=== PATIENT | male | born 1945 | race Caucasian/White ===

== ENCOUNTER → 2017-05-20 | Day surgery (SDC) | payer MEDICARE ==
[~2017-05-20] MED LIST: FLUT1SPR5 EACH NARE; KEPP10002 PO; LACTATED RINGER'S 1000 ML INJ 1,000 ML ONE; OXYC-396 PO; PERC10TA27 PO; PERC5TAB12 PO; XARE20TA PO; ceFAZolin INJ 1,000 MG VIAL ONE
== END | disposition home or self-care (01) ==
LOC: ESDC 12:53
PROVIDERS: ATTEND Urology
DX: N43.3 Hydrocele, unspecified (principal)
CPT/HCPCS: J0690; J7120

== ENCOUNTER 2017-06-28 08:56 | Emergency (ER) | payer MEDICARE ==
[~2017-06-28] VITALS: Ht 172.7 cm; Wt 80.0 kg
[~2017-06-28 08:56] MED LIST changes: -LACTATED RINGER'S 1000 ML INJ 1,000 ML ONE; -PERC10TA27 PO; -PERC5TAB12 PO; -ceFAZolin INJ 1,000 MG VIAL ONE
[2017-06-28 08:59] VITALS: BP 130/80; PULSE 80; RESP 15; TEMP 97.9; O2SAT 96
--- NOTE | 2017-06-28 09:37 | PD ---
HPI Chief Complaint: Complaint Time Seen by Provider: 09:22 Travel History International Travel<30 days: No Contact w/Intl Traveler<30days: No Traveled to known affect area: No History of Present Illness HPI This is a very pleasant 72-year-old male with a history of right lower extremity DVT, seizure disorder, right sided hydrocele, who presents today with pain with his hydrocele and difficulty urinating. Patient states that he was initially scheduled on 912 to have surgery to repair his hydrocele however it was canceled. He states he's now been referred to Dr. Dickens he'll be seen. He reports pain in his right testicle. He also reports difficulty urinating secondary to the discomfort. He denies any new pain. He reports this is a progressive pain that is getting worse. There is no reported fevers, chills. He is on Xarelto and his helmet for the last 5 days. PFSH Past Medical History Hx Anticoagulant Therapy: Yes Diminished Hearing: No Genitourinary: Yes (HYDROCELE ) Immunizations Current: No Seizures: Yes (RELATED TO VALIUM ) Tetanus Vaccination: Unknown Influenza Vaccination: No Past Surgical History Genitourinary Surgery: Yes (MEATUS SURGERY ) Tonsillectomy: Yes Social History Alcohol Use: No Tobacco Use: No Substance Use: No Allergies-Medications (Allergen,Severity, Reaction): Coded Allergies: erythromycin base (Unverified Allergy, Severe, Gi upset, 04/30/17) tamsulosin (Unverified Allergy, Severe, heart palpitations, 04/30/17) baclofen (Unverified Allergy, Intermediate, nausea, 04/30/17) carvedilol (Unverified Allergy, Intermediate, nausea/ hyptension, 04/30/17) hydrochlorothiazide (Unverified Allergy, Intermediate, dizziness/ loss balance, 04/30/17) fluticasone (Verified Allergy, Unknown, RASHES, 06/28/17) Reported Meds & Prescriptions Reported Meds & Active Scripts Active Percocet (Oxycodone-Acetaminophen) 10-325 mg Tab 1 Tab PO Q6H PRN 5 Days Reported Oxycodone (Oxycodone HCl) 20 Mg Tab 20 Mg PO DAILY PRN Keppra (Levetiracetam) 1,000 Mg Tab 1,000 Mg PO BID Xarelto (Rivaroxaban) 20 Mg Tab 20 Mg PO DAILY Review of Systems Except as stated in HPI: all other systems reviewed are Neg General / Constitutional: No: Fever, Chills HENT: No: Headaches, Lightheadedness Cardiovascular: No: Chest Pain or Discomfort, Palpitations, Diaphoresis Respiratory: No: Cough, Shortness of Breath Genitourinary: Positive: Decreased Urinary Output (secondary to discomfort in his testicles.), Other (testicular/hydrocele pain.), No: Urgency, Frequency Musculoskeletal: No: Weakness, Pain Neurologic: No: Weakness, Headache Physical Exam Narrative GENERAL: Well-nourished, well-developed patient in no acute respiratory distress. SKIN: Focused skin assessment warm/dry. HEAD: Normocephalic/atraumatic. EYES: No scleral icterus. No injection or drainage. NECK: Supple, trachea midline. No JVD or lymphadenopathy. CARDIOVASCULAR: Regular rate and rhythm without murmurs, gallops, or rubs. RESPIRATORY: Breath sounds equal bilaterally. No accessory muscle use. GASTROINTESTINAL: Abdomen soft, non-tender, nondistended. GENITOURINARY: Circumcised. Testes descended bilaterally without evidence of rotation. There is swelling and mass like structure in his right testicle consistent with his hydrocele. No lesions or erythema. No urethral discharge. MUSCULOSKELETAL: No cyanosis, or edema. NEUROLOGICAL: Awake and alert. Cranial nerves II through XII intact. Motor grossly within normal limits. Five out of 5 muscle strength in all muscle groups. Normal speech. Data Data Last Documented VS Vital Signs Date Time Temp Pulse Resp B/P (MAP) Pulse Ox O2 Delivery O2 Flow Rate FiO2 06/28/17 10:26 59 16 143/82 (102) 97 Room Air 06/28/17 08:59 97.9 Orders Orders Urinalysis - C+S If Indicated (06/28/17 09:22) Iv Access Insert/Monitor (06/28/17 09:22) Oximetry (06/28/17 09:22) Support, Scrotal Med Ea (06/28/17 10:41) Oxycodone-Acetamin 5-325 Mg (Percocet (06/28/17 10:45) Labs Laboratory Tests Test 06/28/17 09:30 Urine Color YELLOW Urine Turbidity CLEAR Urine pH 8.0 Urine Specific [place] 1.017 Urine Protein NEG mg/dL Urine Glucose (UA) NEG mg/dL Urine Ketones NEG mg/dL Urine Occult Blood NEG Urine Nitrite NEG Urine Bilirubin NEG Urine Urobilinogen LESS THAN 2.0 MG/DL Urine Leukocyte Esterase NEG Urine RBC LESS THAN 1 /hpf Urine WBC 1 /hpf Urine Hyaline Casts 1 /lpf Urine Mucus FEW /lpf Microscopic Urinalysis Comment CULT NOT INDICATED MDM Medical Decision Making Medical Screen Exam Complete: Yes Emergency Medical Condition: Yes Differential Diagnosis Urinary retention versus urinary tract infection versus increasing hydrocele size. Narrative Course This is a 72-year-old male with history of hydrocele, previous DVTs, seizure disorder, since today with points of pain in his left sided hydrocele with difficulty urinating. The patient was able to urinate in post void residual sort 80 cc. Given this, patient does not need a catheter. I do not feel his as though he has torsion. Pain is consistent with his hydrocele. I spoke with the patient stated that at this point there is nothing emergent that needs to be done. He'll be given a prescription for Percocet as he has chronic pain and states that he is low on his prescribed oxycodone. I stated that I do not prescribe oxycodone. He'll be given 5 days of Percocet prescription. He'll also be given scrotal support and told to call Dr. Hewitt's office on Friday. Diagnosis Primary Impression: Hydrocele in adult Additional Impression: Difficulty urinating Additional Instructions: Wear scrotal support for comfort. Call Dr. Hewitt's office on Friday. Return if fevers, chills, or any other reason the concerns. Med/Other Pt SpecificInfo: Prescription(s) given Scripts Oxycodone-Acetaminophen (Percocet) 10-325 mg Tab 1 TAB PO Q6H Y for PAIN for 5 Days, #20 TAB 0 Refills Prov: Praful Travis MD 06/28/17 Disposition: 01 DISCHARGE HOME Condition: Stable Praful Travis MD Jun 28, 2017 09:36
[2017-06-28 09:48] LABS: BLOOD, URINE NEG (NEG); COMMENT (UR) CULT NOT INDICATED; CULTURE IF INDICATED CULT NOT INDICATED; GLUCOSE,URINE NEG (NEG); HYALINE CAST, URINE 1 /lpf (RARE); KETONE, URINE NEG (NEG); MUCUS URINE FEW /lpf (OCC); NITRITE,URINE NEG (NEG); URINE COLOR YELLOW (YELLW/STRAW)
[2017-06-28 10:26] VITALS: BP 143/82; PULSE 59; RESP 16; O2SAT 97
[2017-06-28] MEDS ORDERED: PERC10TA27 PO (10:40)
[2017-06-28] MEDS ORDERED: oxyCODONE/ACETAMINOPHEN 5 MG/325 MG TAB PO ONE (10:45)
[2017-06-30] MEDS ORDERED: PERC10TA27 PO (10:22)
[2017-06-30] MEDS ORDERED: PERC5TAB12 PO (10:25)
--- NOTE | 2017-06-30 10:26 | PD ---
Physical Exam Time Seen by Provider: 10:25 Narrative Please refer to previous providers documentation Data Data Last Documented VS Vital Signs Date Time Temp Pulse Resp B/P (MAP) Pulse Ox O2 Delivery O2 Flow Rate FiO2 06/28/17 11:55 100 06/28/17 10:26 59 16 Room Air 06/28/17 08:59 97.9 Orders Orders Urinalysis - C+S If Indicated (06/28/17 09:22) Iv Access Insert/Monitor (06/28/17 09:22) Oximetry (06/28/17 09:22) Support, Scrotal Med Ea (06/28/17 10:41) Oxycodone-Acetamin 5-325 Mg (Percocet (06/28/17 10:45) Ed Discharge Order (06/28/17 10:54) Labs Laboratory Tests Test 06/28/17 09:30 Urine Color YELLOW Urine Turbidity CLEAR Urine pH 8.0 Urine Specific [place] 1.017 Urine Protein NEG mg/dL Urine Glucose (UA) NEG mg/dL Urine Ketones NEG mg/dL Urine Occult Blood NEG Urine Nitrite NEG Urine Bilirubin NEG Urine Urobilinogen LESS THAN 2.0 MG/DL Urine Leukocyte Esterase NEG Urine RBC LESS THAN 1 /hpf Urine WBC 1 /hpf Urine Hyaline Casts 1 /lpf Urine Mucus FEW /lpf Microscopic Urinalysis Comment CULT NOT INDICATED MDM Medical Record Reviewed: Yes Supervised Visit with KENYA: No Narrative Course Patient returns as prescription written was not accepted by pharmacy. I have the paper prescription was initially written. New Prescription will be provided. Diagnosis Primary Impression: Hydrocele in adult Additional Impression: Difficulty urinating Patient Instructions: General Instructions, Hydrocele (ED) Departure Forms: Tests/Procedures Additional Instruction: Wear scrotal support for comfort. Call Dr. Hewitt's office on Friday. Return if fevers, chills, or any other reason the concerns. Scripts Oxycodone-Acetaminophen (Percocet) 5-325 mg Tab 1-2 TAB PO Q6H Y for PAIN, #20 TAB 0 Refills Prov: Isidra Solano 06/30/17 Disposition: 01 DISCHARGE HOME Condition: Stable Isidra Solano Jun 30, 2017 10:26
== END 2017-06-28 11:55 | disposition home or self-care (01) ==
LOC: NEPC 08:56
DX: N43.3 Hydrocele, unspecified (principal); R30.0 Dysuria; G40.909 Epilepsy, unspecified, not intractable, without status epilepticus; Z86.718 Personal history of other venous thrombosis and embolism; Z79.01 Long term (current) use of anticoagulants; Z79.899 Other long term (current) drug therapy
CPT/HCPCS: 51798; 81001

== ENCOUNTER 2017-08-14 11:21 | Day surgery (SDC) | payer MEDICARE ==
[~2017-08-14] VITALS: Ht 172.7 cm; Wt 81.8 kg
[~2017-08-14 11:21] MED LIST changes: -FLUT1SPR5 EACH NARE; +MULT-65 PO
[2017-08-14] MEDS ORDERED: ceFAZolin 1,000 MG/NS 100 ML IV SCH ×2 (11:45)
[2017-08-14] MEDS ORDERED: SODIUM CHLORID 0.9% 500 ML IV PRN (11:45)
[2017-08-14] MEDS ORDERED: CHLORHEXIDINE GLUCONATE 2 % 1 PACK (2 CLOTHS) TOPICAL PRN (11:45)
[2017-08-14] MEDS ORDERED: INSULIN HUMAN REGULAR 1,000 UNITS/10 ML VIAL SQ PRN (11:45)
[2017-08-14] MEDS ORDERED: LACTATED RINGER'S 1000 ML IV PRN (11:45)
[2017-08-14] MEDS ORDERED: POVIDONE IODINE 5% (ANTISEPSIS KIT) 4 APPLICATIONS EACH NARE PRN (11:45)
[2017-08-14] MEDS ORDERED: DEXAMETHASONE SOD PHOS 4 MG/ML VIAL IV ONE (12:00)
[2017-08-14] MEDS ORDERED: ONDANSETRON HCL 4 MG/2 ML VIAL IV PUSH ONE (12:00)
[2017-08-14] MEDS ORDERED: LIDOCAINE HCL 1% PF 5 ML SYRINGE OTHER ONE (12:00)
[2017-08-14] MEDS ORDERED: PROPOFOL 200 MG/20 ML AMP IV ONE (12:00)
[2017-08-14 13:30] LABS: AUTOMATED NEUTROPHIL # 4.1 TH/MM3 (1.8-7.7); BASOPHIL % 0.4 % (0.0-2.0); EOSINOPHIL % 0.2 % (0.0-4.0); HEMATOCRIT 34.9 % (39.0-51.0); HEMO FLAGS DIFF FINAL; LYMPH % 16.4 % (9.0-44.0); LYMPHOCYTE # 0.9 TH/MM3 (1.0-4.8); MEAN CELL VOLUME 85.6 FL (80.0-100.0); MEAN CORPUSCULAR HEMOGLOBIN 27.9 PG (27.0-34.0); MEAN CORPUSCULAR HGB CONC 32.6 % (32.0-36.0); MONO % 5.2 % (0.0-8.0); NEUT % 77.8 % (16.0-70.0); PLATELET COUNT 197 TH/MM3 (150-450); RED BLOOD COUNT 4.08 MIL/MM3 (4.50-5.90); RED CELL DISTRIBUTION WIDTH 14.6 % (11.6-17.2); WHITE BLOOD COUNT 5.3 TH/MM3 (4.0-11.0)
[2017-08-14] MEDS ORDERED: BUPIVACAINE HCL PF 0.5% 30 ML VIAL ONE (15:14)
--- NOTE | 2017-08-14 17:02 | PD.OP ---
Operative Report Date of Surgery: Aug 14, 2017 Preoperative Diagnosis: Left hydrocele Postoperative Diagnosis: Same Procedure: Left hydrocelectomy Anesthesia: Gen. LMA Surgeon: Wu Tompkins Senior Energy Market Coordinator(s): None Resident Surgeon: none Operation and Findings: 72-year-old male presented the office with a left hydrocele. Decision made to bring the patient to the operating room undergo left hydrocelectomy. Risk and benefits were discussed preoperatively and he is willing to proceed. The patient was brought to the operating room and identified by myself as Stephen Knight. He was placed on the operating table in the supine position, prepped and draped usual sterile fashion, received preprocedure antibiotics and general LMA anesthesia was induced. 15 blade was used to make the opening incision in a transverse fashion on the left hemiscrotum. The dorsal fascia was entered and then the testicle with hydrocele sac was also delivered. The fibrous sac surrounding this hydrocele was dissected using the Metzenbaum scissors and a Ray -Nenita was used to push back the sequential layers. Once down to the final layer the sac was then entered and the fluid was drained. Approximately 100 cc of clear yellow fluid was drained. Inspection of the testicle showed that it was normal. The hydrocele sac was then partially resected and sent to pathology. Hemostasis was obtained using the Bovie cautery on the edge of the residual sac. A bottleneck procedure was then performed using 3-0 chromic sutures in a running locking fashion. Oscar was then placed into the left hemiscrotum to provide hemostasis. The testicle was then placed back into the scrotum and hemostasis was again checked for and was present. A running 3-0 Vicryl suture was then used to close dartos fascia. The skin was then closed with a running 4 -0 Vicryl suture. No drain was left. Fluffs and a scrotal support were placed. He was awoken and extubated and transferred occurring in stable condition. Wu Tompkins DO Aug 14, 2017 17:02
[2017-08-14] MEDS ORDERED: *morphine SULFATE 8 MG/ML PERIprocedure ONLY ONE ×2 (17:12→18:00)
[2017-08-14] MEDS ORDERED: HYDROmorphone HCL PF 1 MG/ML VIAL ONE (17:15)
[2017-08-14] MEDS ORDERED: *ENALAPRILAT 1.25 MG/ML VIAL PERIprocedural Use ONLY ONE (17:26)
[2017-08-14] MEDS ORDERED: hydrALAZINE HCL 20 MG/ML VIAL ONE (17:39)
[2017-08-14] MEDS ORDERED: oxyCODONE/ACETAMINOPHEN 5 MG/325 MG TAB ONE (17:39)
[2017-08-14] MEDS ORDERED: ONDANSETRON HCL 4 MG/2 ML VIAL IV PUSH PRN (18:00)
[2017-08-14] MEDS ORDERED: oxyCODONE/ACETAMINOPHEN 5 MG/325 MG TAB PO PRN (18:00)
[2017-08-14] MEDS ORDERED: DO NOT ADM ANY ANTICOAGULANT DRUGS PRN (18:00)
[2017-08-14] MEDS ORDERED: HYDROmorphone HCL PF 2 MG/ML VIAL IV PRN (18:00)
[2017-08-14] MEDS ORDERED: *HYDROmorphone PF 1 MG VIAL PERIprocedural Use ONLY ONE (18:18)
[2017-08-14] MEDS ORDERED: HYDROmorphone HCL PF 1 MG/ML VIAL IV PUSH ONE (18:45)
[2017-08-14] MEDS ORDERED: PERC5TAB12 PO (18:48)
[2017-08-14] MEDS ORDERED: CEPH-460 PO (18:48)
[2017-08-14 18:50] VITALS: BP 120/62; PULSE 10; RESP 20; TEMP 98.1; O2SAT 100
[2017-08-14] MEDS ORDERED: LACTATED RINGER'S 1000 ML INJ 1,000 ML IV SCH (19:00)
[2017-08-14] MEDS ORDERED: hydrALAZINE HCL 20 MG/ML VIAL IV PUSH ONE (19:30)
== END 2017-08-14 19:00 | disposition home or self-care (01) ==
LOC: HSDC 11:21
PROVIDERS: ATTEND Urology
DX: N43.3 Hydrocele, unspecified (principal); I82.5Z1 Chronic embolism and thrombosis of unspecified deep veins of right distal lower extremity; R56.9 Unspecified convulsions; E78.5 Hyperlipidemia, unspecified; Z01.818 Encounter for other preprocedural examination
CPT/HCPCS: 00920; 55040; 85025; 88302; J0360; J0690; J1170; J2270; J7120; J1100; J2405; J3010